=== PATIENT | male | born 1990 | race Caucasian/White ===

== ENCOUNTER 2021-10-01 15:25 | Emergency (ER) | payer MEDICAID ==
[2021-10-01] MEDS ORDERED: Acetaminophen/oxyCODONE 325-5 MG Tab ONE (16:00)
== END 2021-10-01 16:08 | disposition home or self-care (01) ==
LOC: LB.ED 15:25
DX: S02.5XXA Fracture of tooth (traumatic), initial encounter for closed fracture (principal); X58.XXXA Exposure to other specified factors, initial encounter
CPT/HCPCS: 99282; A9270-GY

== ENCOUNTER 2021-11-17 19:25 | Emergency (ER) | payer MEDICAID ==
[2021-11-17] MEDS ORDERED: Acetaminophen/oxyCODONE 325-5 MG Tab ONE (20:00)
== END 2021-11-17 20:40 | disposition home or self-care (01) ==
LOC: LB.ED 19:25
DX: S02.5XXD Fracture of tooth (traumatic), subsequent encounter for fracture with routine healing (principal); X58.XXXD Exposure to other specified factors, subsequent encounter
CPT/HCPCS: 99282; A9270; 99281

== ENCOUNTER 2021-11-26 21:25 | Emergency (ER) | payer MEDICAID ==
[2021-11-26] MEDS ORDERED: Acetaminophen/HYDROcodone 325-5 MG Tab ONE (22:00)
[2021-11-26] MEDS ORDERED: Amoxicillin/Clavulanate K 875-125 MG Tab ONE (22:00)
== END 2021-11-26 22:12 | disposition home or self-care (01) ==
LOC: LB.ED 21:25
DX: K08.89 Other specified disorders of teeth and supporting structures (principal); Z88.8 Allergy status to other drugs, medicaments and biological substances
CPT/HCPCS: 99282; A9270; 99281

== ENCOUNTER 2021-12-28 21:05 | Emergency (ER) | payer MEDICAID ==
[2021-12-28] MEDS ORDERED: Acetaminophen/oxyCODONE 325-5 MG Tab ONE ×3 (21:30→21:53)
[2021-12-28] MEDS ORDERED: Amoxicillin/Clavulanate K 875-125 MG Tab ONE (21:30)
[2021-12-28] MEDS ORDERED: Ibuprofen 800 MG Tab ONE (21:30)
[2021-12-28] MEDS: Acetaminophen/oxyCODONE 325-5 MG Tab PO PRN (21:42)
== END 2021-12-28 22:00 | disposition home or self-care (01) ==
LOC: LB.ED 21:05
DX: K04.7 Periapical abscess without sinus (principal); Z88.8 Allergy status to other drugs, medicaments and biological substances
CPT/HCPCS: 99282; A9270

== ENCOUNTER 2022-07-02 01:34 | Emergency (ER) | payer MEDICAID ==
[2022-07-02 01:50] VITALS: BP 145/99; PULSE 84
[2022-07-02] MEDS ORDERED: Ketorolac 60 MG/2 ML SDV IM ONE (01:51)
[2022-07-02] MEDS ORDERED: traMADol 50 MG Tab ONE (02:00)
[2022-07-02] MEDS ORDERED: Amoxicillin/Clavulanate K 875-125 MG Tab ONE (02:00)
== END 2022-07-02 02:13 | disposition home or self-care (01) ==
LOC: LB.ED 01:34
DX: K08.89 Other specified disorders of teeth and supporting structures (principal)
CPT/HCPCS: 96372; 99282; A9270-GY; J1885

== ENCOUNTER 2023-01-09 22:32 | Emergency (ER) | payer MEDICAID ==
[2023-01-09] MEDS ORDERED: Ketorolac 60 MG/2 ML SDV ONE (22:54)
[2023-01-09] MEDS ORDERED: Ketorolac 60 MG/2 ML SDV IM ONE (22:55)
[2023-01-09] MEDS ORDERED: Acetaminophen/HYDROcodone 325-5 MG Tab ONE ×2 (23:22→23:45)
[2023-01-09] MEDS ORDERED: Acetaminophen/HYDROcodone 325-5 MG Tab PO ONE (23:23)
== END 2023-01-10 00:20 | disposition home or self-care (01) ==
LOC: LB.ED 22:32
DX: S93.401A Sprain of unspecified ligament of right ankle, initial encounter (principal); Z88.8 Allergy status to other drugs, medicaments and biological substances; Z79.899 Other long term (current) drug therapy; W10.8XXA Fall (on) (from) other stairs and steps, initial encounter
CPT/HCPCS: 73610; 96372; 99283; A9270; J1885; 99282

== ENCOUNTER 2023-11-24 18:25 | Emergency (ER) | payer MEDICAID ==
[2023-11-24] MEDS: Ketorolac 30 MG/ML SDV IM ONE (18:57)
[2023-11-24] MEDS: Lidocaine 1% with EPINEPHrine 1:100,000 50 ML MDV INFILT ONE (19:24)
[2023-11-24] MEDS: Acetaminophen/HYDROcodone 325-5 MG Tab PO ONE (19:51)
[2023-11-24] MEDS: Bacitracin Oint 1 GM U/D Packet TOP ONE (20:00)
[2023-11-24] MEDS ORDERED: Acetaminophen/HYDROcodone 325-5 MG Tab ONE (20:25)
[2023-11-24] MEDS ORDERED: Cephalexin 500 MG Cap ONE (20:25)
[2023-11-24 20:35] VITALS: BP 120/76; PULSE 78
== END 2023-11-24 20:25 | disposition home or self-care (01) ==
LOC: LB.ED 18:25
DX: S62.637B Displaced fracture of distal phalanx of left little finger, initial encounter for open fracture (principal); I10 Essential (primary) hypertension; E10.9 Type 1 diabetes mellitus without complications; Z79.899 Other long term (current) drug therapy; Z79.84 Long term (current) use of oral hypoglycemic drugs; Z79.4 Long term (current) use of insulin; Z88.8 Allergy status to other drugs, medicaments and biological substances; W22.8XXA Striking against or struck by other objects, initial encounter
CPT/HCPCS: 12001; 73140-F4; 96372; 99283; 99283-25; A9270-GY; J1885

== ENCOUNTER 2023-12-15 20:29 | Emergency (ER) | payer MEDICAID ==
[2023-12-15] MEDS ORDERED: Sodium Chloride 0.9% 10 ML Syringe FLUSH PRN (21:04)
[2023-12-15] MEDS: Morphine 4 MG/ML VIAL IVPUSH ONE (21:08)
[2023-12-15] MEDS: Morphine 4 MG/ML VIAL ONE (21:13)
[2023-12-15] MEDS: Sodium Chloride 0.9% 1,000 ML IV SCH ×2 (21:19→22:18)
[2023-12-15 21:26] LABS: APPEARANCE,URINE CLEAR (CLEAR); BILIRUBIN,URINE NEGATIVE (NEGATIVE); COLOR,URINE YELLOW; GLUCOSE,URINE 100 mg/dL (NEGATIVE); KETONES,URINE NEGATIVE (NEGATIVE); LEUKOCYTE ESTERASE,URINE NEGATIVE (NEGATIVE); NITRITE,URINE NEGATIVE (NEGATIVE); OCCULT BLOOD,URINE NEGATIVE (NEGATIVE); PROTEIN,URINE NEGATIVE (NEGATIVE); UROBILINOGEN,URINE 0.2 E.U./dL (0.2-1.0)
[2023-12-15 21:31] LABS: BASOPHILS ABSOLUTE AUTO 0.08 K/uL (0.02-0.10); BASOPHILS PERCENT AUTO 0.7 % (0.0-0.5); EOSINOPHILS ABSOLUTE AUTO 0.64 K/uL (0.04-0.40); EOSINOPHILS PERCENT AUTO 5.7 % (1.0-5.0); HEMOGLOBIN 14.7 g/dL (13.0-18.0); LYMPHOCYTES ABSOLUTE AUTO 2.63 K/uL (1.50-4.00); LYMPHOCYTES PERCENT AUTO 23.6 % (20.0-40.0); MEAN CORPUSCULAR HEMOGLOBIN 29.8 pg (27.0-32.0); MEAN CORPUSCULAR HGB CONC 35.9 g/dL (31.0-35.0); MEAN CORPUSCULAR VOLUME 83 fL (76-96); MEAN PLATELET VOLUME 11.3 fL (6.0-10.0); MONOCYTES ABSOLUTE AUTO 0.59 K/uL (0.20-0.80); MONOCYTES PERCENT AUTO 5.3 % (3.0-10.0); NEUTROPHILS ABSOLUTE AUTO 7.21 K/uL (2.00-7.50); NEUTROPHILS PERCENT AUTO 64.7 % (45.0-70.0); PLATELET COUNT,PLT 211 K/uL (150-400); RED BLOOD CELL COUNT 4.94 M/uL (4.50-6.50); RED CELL DISTRIBUTION WIDTH 13.3 % (11.0-16.0); WHITE BLOOD CELL COUNT,WBC 11.2 K/uL (4.0-11.0)
[2023-12-15 21:41] LABS: A/G RATIO 1.2 (0.8-2.0); ALBUMIN 3.6 g/dL (3.4-5.0); ANION GAP 15.3 mmol/L (5.0-15.0); BILIRUBIN TOTAL 0.3 mg/dL (0.0-1.0); BUN/CREATININE RATIO 11.8 (6-25); CALCIUM 8.7 mg/dL (8.5-10.1); CARBON DIOXIDE,CO2 25.4 mmol/L (21.0-32.0); CREATININE 1.02 mg/dL (0.70-1.30); EST CRCL DRUG DOSING (CG) 107.66 mL/min; MAGNESIUM 1.6 mg/dL (1.8-2.4); POTASSIUM,K 3.7 mmol/L (3.5-5.1); PROTEIN TOTAL,TP 6.5 g/dL (6.4-8.2)
[2023-12-15] MEDS: Ketorolac 30 MG/ML SDV IVPUSH ONE (22:14)
[2023-12-15] MEDS: Ketorolac 30 MG/ML SDV ONE (22:23)
[2023-12-15] MEDS: Iopamidol 612 MG/ML 100 ML Bottle IV PRN (22:41)
[2023-12-15] MEDS: Sodium Chloride 0.9% 50 ML SDV FLUSH SCH (22:41)
[2023-12-15] MEDS: GI Cocktail Oral Solution 30 ML PO ONE (22:56)
[2023-12-16 00:32] VITALS: BP 151/79; PULSE 91
== END 2023-12-16 00:10 | disposition home or self-care (01) ==
LOC: LB.ED 20:29
DX: R10.13 Epigastric pain (principal); I10 Essential (primary) hypertension; E10.9 Type 1 diabetes mellitus without complications; Z88.8 Allergy status to other drugs, medicaments and biological substances; Z79.4 Long term (current) use of insulin; Z79.84 Long term (current) use of oral hypoglycemic drugs; Z79.899 Other long term (current) drug therapy; Z87.891 Personal history of nicotine dependence
CPT/HCPCS: 36415; 74177; 80053; 81003; 83690; 83735; 85025; 96361; 96374; 96375; 99284-25; A9270-GY; J1885; J2270; J3490; J7030; Q9967